=== PATIENT | male | born 1955 | race American Indian/Alaskan Native ===

== ENCOUNTER 2018-09-14 10:56 | Emergency (ER) | payer MEDICARE ==
[2018-09-14 11:44] LABS: Hematocrit 43.9 % (35.5-45.6); Hemoglobin 14.7 gm/dl (11.8-15.2); Mean Corpuscular HGB Conc 33 % (32-34); Mean Corpuscular Volume 94 fl (84-94); Platelet Count 346 K/mm3 (140-440); Red Blood Count 4.67 M/mm3 (3.65-5.03); Red Cell Distribution Width 12.9 % (13.2-15.2)
[2018-09-14 12:08] LABS: Alanine Aminotransferase 12 units/L (7-56); Albumin 4.1 g/dL (3.9-5); BUN/Creatinine Ratio 18; Blood Urea Nitrogen 14 mg/dL (9-20); Calcium 9.3 mg/dL (8.4-10.2); Hemolysis Index 8
[2018-09-14] MEDS ORDERED: NACL 0.9% 1000 ML 1,000 ML ONE (12:35)
[2018-09-14] MEDS ORDERED: NACL 0.9% 1000 ML 1,000 ML IV ONE (13:02)
[2018-09-14] MEDS ORDERED: HumuLIN R IV ONE (13:05)
--- NOTE | 2018-09-14 13:56 | Emergency Department Report ---
ED General Adult HPI - General Chief complaint: Hyperglycemia Stated complaint: HIGH BLOOD SUGAR Source: patient Mode of arrival: Ambulatory Limitations: No Limitations - History of Present Illness Initial comments: Patient is a 63-year-old male is medical history of diabetes who presents with high blood sugar. Patient states that he felt nauseous and that his blood sugar was elevated. His primary care doctor referred him to come to the ER. That his sugar was in the 300s and he came to have lowered. Patient is currently on glipizide nothing makes his symptoms are nothing makes it worse. - Related Data Allergies Allergy/AdvReac Type Severity Reaction Status Date / Time No Known Allergies Allergy Unverified 09/14/18 10:58 ED Review of Systems ROS: Stated complaint: HIGH BLOOD SUGAR Other details as noted in HPI Constitutional: denies: chills, fever Eyes: denies: eye pain, eye discharge, vision change ENT: denies: ear pain, throat pain Respiratory: denies: cough, shortness of breath, wheezing Cardiovascular: denies: chest pain, palpitations Endocrine: no symptoms reported Gastrointestinal: denies: abdominal pain, nausea, diarrhea Genitourinary: denies: urgency, dysuria Musculoskeletal: denies: back pain, joint swelling, arthralgia Skin: denies: rash, lesions Neurological: denies: headache, weakness, paresthesias Psychiatric: denies: anxiety, depression Hematological/Lymphatic: denies: easy bleeding, easy bruising ED Past Medical Hx - Past Medical History Previous Medical History?: Yes Hx Diabetes: Yes - Surgical History Past Surgical History?: No - Social History Smoking Status: Current Every Day Smoker Substance Use Type: Alcohol ED Physical Exam - General Limitations: No Limitations General appearance: alert, in no apparent distress - Head Head exam: Present: atraumatic, normocephalic - Eye Eye exam: Present: normal appearance - ENT ENT exam: Present: mucous membranes moist - Neck Neck exam: Present: normal inspection - Respiratory Respiratory exam: Present: normal lung sounds bilaterally. Absent: respiratory distress - Cardiovascular Cardiovascular Exam: Present: regular rate, normal rhythm. Absent: systolic murmur, diastolic murmur, rubs, gallop - GI/Abdominal GI/Abdominal exam: Present: soft, normal bowel sounds - Rectal Rectal exam: Present: deferred - Extremities Exam Extremities exam: Present: normal inspection - Back Exam Back exam: Present: normal inspection - Neurological Exam Neurological exam: Present: alert, oriented X3 - Psychiatric Psychiatric exam: Present: normal affect, normal mood - Skin Skin exam: Present: warm, dry, intact, normal color. Absent: rash ED Course Vital Signs 09/14/18 09/14/18 09/14/18 11:02 12:06 12:15 Temperature 97.8 F Pulse Rate 71 73 72 Respiratory 16 14 12 Rate Blood Pressure 124/91 136/90 O2 Sat by Pulse 97 99 96 Oximetry 09/14/18 09/14/18 09/14/18 12:30 12:45 13:01 Temperature Pulse Rate 80 72 71 Respiratory 16 12 15 Rate Blood Pressure 136/90 129/86 135/82 O2 Sat by Pulse 97 95 93 Oximetry 09/14/18 09/14/18 09/14/18 13:15 13:31 13:45 Temperature Pulse Rate 71 69 70 Respiratory 11 L 11 L 14 Rate Blood Pressure 141/74 135/82 132/83 O2 Sat by Pulse 98 98 98 Oximetry 09/14/18 09/14/18 09/14/18 14:01 14:15 14:31 Temperature Pulse Rate 71 67 69 Respiratory 11 L 13 17 Rate Blood Pressure 141/93 141/93 138/81 O2 Sat by Pulse 96 99 96 Oximetry 09/14/18 09/14/18 14:45 15:00 Temperature Pulse Rate 78 Respiratory 16 13 Rate Blood Pressure 138/81 141/83 O2 Sat by Pulse 97 97 Oximetry ED Medical Decision Making - Lab Data Result diagrams: 09/14/18 11:25 09/14/18 11:25 Lab Results 09/14/18 09/14/18 09/14/18 Range/Units 11:04 11:25 11:25 WBC 8.3 (4.5-11.0) K/mm3 RBC 4.67 (3.65-5.03) M/mm3 Hgb 14.7 (11.8-15.2) gm/dl Hct 43.9 (35.5-45.6) % MCV 94 (84-94) fl MCH 31 (28-32) pg MCHC 33 (32-34) % RDW 12.9 L (13.2-15.2) % Plt Count 346 (140-440) K/mm3 Sodium 135 L (137-145) mmol/L Potassium 4.3 (3.6-5.0) mmol/L Chloride 96.9 L (98-107) mmol/L Carbon Dioxide 21 L (22-30) mmol/L Anion Gap 21 mmol/L BUN 14 (9-20) mg/dL Creatinine 0.8 (0.8-1.5) mg/dL Estimated GFR > 60 ml/min BUN/Creatinine Ratio 18 % Glucose 397 H (75-100) mg/dL POC Glucose 315 H (70-105) Calcium 9.3 (8.4-10.2) mg/dL Total Bilirubin 0.20 (0.1-1.2) mg/dL AST 11 (5-40) units/L ALT 12 (7-56) units/L Alkaline Phosphatase 55 (35-129) units/L Total Protein 7.1 (6.3-8.2) g/dL Albumin 4.1 (3.9-5) g/dL Albumin/Globulin Ratio 1.4 % 09/14/18 09/14/18 Range/Units 14:03 15:10 WBC (4.5-11.0) K/mm3 RBC (3.65-5.03) M/mm3 Hgb (11.8-15.2) gm/dl Hct (35.5-45.6) % MCV (84-94) fl MCH (28-32) pg MCHC (32-34) % RDW (13.2-15.2) % Plt Count (140-440) K/mm3 Sodium (137-145) mmol/L Potassium (3.6-5.0) mmol/L Chloride (98-107) mmol/L Carbon Dioxide (22-30) mmol/L Anion Gap mmol/L BUN (9-20) mg/dL Creatinine (0.8-1.5) mg/dL Estimated GFR ml/min BUN/Creatinine Ratio % Glucose (75-100) mg/dL POC Glucose 305 H 151 H (70-105) Calcium (8.4-10.2) mg/dL Total Bilirubin (0.1-1.2) mg/dL AST (5-40) units/L ALT (7-56) units/L Alkaline Phosphatase (35-129) units/L Total Protein (6.3-8.2) g/dL Albumin (3.9-5) g/dL Albumin/Globulin Ratio % - Medical Decision Making Chief medical diagnosis: Hyperglycemia differential medical diagnosis DKA, hypokalemia I will get IV fluids IV insulin CBC BMP Critical care attestation.: If time is entered above; I have spent that time in minutes in the direct care of this critically ill patient, excluding procedure time. ED Disposition Clinical Impression: Hyperglycemia Disposition: DC-01 TO HOME OR SELFCARE Is pt being admited?: No Does the pt Need Aspirin: No Condition: Stable Instructions: Diabetic Hyperglycemia (ED) Referrals: [facility] [Other] - 3-5 Days
[2018-09-14 15:10] VITALS: BP 141/83
== END 2018-09-14 15:32 | disposition home or self-care (01) ==
LOC: ED 10:56
DX: E11.65 Type 2 diabetes mellitus with hyperglycemia (principal); F17.200 Nicotine dependence, unspecified, uncomplicated
CPT/HCPCS: 36415; 80053; 82962; 85027; 96361; 96374; 99283; J7030; J1815

== ENCOUNTER 2019-03-13 03:19 | Emergency (ER) | payer MEDICARE, OTHER ==
[2019-03-13] MEDS ORDERED: ACETAMINOPHEN 500 MG TAB PO ONE (04:07)
[2019-03-13] MEDS ORDERED: IBUPROFEN 600 MG TAB PO ONE (04:07)
[2019-03-13] MEDS ORDERED: ONDANSETRON 4 MG ODT TAB PO ONE (04:08)
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
--- NOTE | 2019-03-13 04:35 | XRay Report ---
XR LUMBAR SPINE HISTORY: Lower back pain COMPARISON: None. TECHNIQUE: 3 view(s) of the lumbar spine obtained. FINDINGS: Vertebrae: Normal alignment. No fracture or significant abnormality. Disc Spaces:Moderate disc height loss with anterior osteophytes from L4 through S1. Facet Joints:Moderate facet hypertrophy in the lower lumbar spine. Additional findings: Cholecystectomy clips are noted. IMPRESSION: 1. Moderate degenerative disc and facet disease in the lower lumbar spine. Signer Name: Jessy Vergara MD Signed: 03/13/2019 4:31 AM Workstation Name: [id number]
--- NOTE | 2019-03-13 04:37 | XRay Report ---
XR CERVICAL SPINE HISTORY: Neck pain COMPARISON: None. TECHNIQUE: 4 views of the cervical spine obtained. FINDINGS: Vertebrae: Vertebral body heights and alignment are maintained. Disc Spaces:Mild disc height loss from C5 through C7. Facet Joints:No significant abnormality. Prevertebral Soft Tissues:No significant abnormality. Additional findings: None. IMPRESSION: 1. No acute abnormality identified in the cervical spine. Signer Name: Jessy Vergara MD Signed: 03/13/2019 4:33 AM Workstation Name: [id number]
[2019-03-13 07:32] VITALS: BP 131/84
== END 2019-03-13 05:30 | disposition home or self-care (01) ==
LOC: ED 03:19
DX: M62.838 Other muscle spasm (principal); M62.830 Muscle spasm of back; V89.2XXA Person injured in unspecified motor-vehicle accident, traffic, initial encounter; Y93.89 Activity, other specified; Y92.410 Unspecified street and highway as the place of occurrence of the external cause; Y99.8 Other external cause status
CPT/HCPCS: 72040; 72100; Q0162

== ENCOUNTER 2019-04-18 11:12 | Emergency (ER) | payer SELFPAY ==
[2019-04-18 11:51] VITALS: BP 151/100
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
[2019-04-18] MEDS ORDERED: IPRATROPIUM/ALBUTEROL SULFATE 3 ML AMPUL.NEB IH ONE (13:32)
[2019-04-18] MEDS ORDERED: predniSONE 20 MG TAB PO ONE (13:34)
--- NOTE | 2019-04-18 13:47 | Emergency Department Report ---
HPI - General Chief Complaint: Rectal Pain Time Seen by Provider: 04/18/19 11:49 - HPI HPI: 63-year-old -[place] male presents to the emergency department with 2 complaints. First, the patient complains of a 3 to four-day history of some rectal bleeding only seen on the toilet paper when he wipes. It is bright red blood. He denies any abdominal or rectal pain. Secondly, the patient complains of some wheezing and shortness of breath over the past 2 weeks. He has a history of COPD. He is not oxygen dependent. He is a tobacco smoker. He does not have any albuterol at home and has not taken anything for his symptoms. His primary care physician is Dr. Muñoz but he has not seen them regarding his symptoms. No recent travel or sick contacts at home. ED Past Medical Hx - Past Medical History Previous Medical History?: Yes Hx Diabetes: Yes Hx COPD: Yes - Surgical History Past Surgical History?: Yes Hx Cholecystectomy: Yes - Social History Smoking Status: Current Some Day Smoker Substance Use Type: Alcohol - Medications Home Medications: Home Medications Medication Instructions Recorded Confirmed Last Taken Type Ibuprofen [Motrin] 600 mg PO Q8H PRN #20 tablet 03/13/19 Unknown Rx tiZANidine [Zanaflex 4mg TAB] 4 mg PO Q8H PRN #21 tablet 03/13/19 Unknown Rx traMADol [Ultram] 50 mg PO Q6HR PRN #12 tablet 03/13/19 Unknown Rx ALBUTEROL Inhaler (OR & NICU) 2 puff IH QID PRN #1 inh 04/18/19 Unknown Rx [ProAir HFA Inhaler] predniSONE [Deltasone] 20 mg PO QDAY #5 tab 04/18/19 Unknown Rx ED Review of Systems ROS: Stated complaint: RECTAL BLEEDING Other details as noted in HPI Comment: All other systems reviewed and negative Constitutional: denies: chills, fever Eyes: denies: eye pain, vision change Respiratory: cough, shortness of breath, wheezing Cardiovascular: denies: chest pain, palpitations Gastrointestinal: denies: abdominal pain, vomiting Genitourinary: other (rectal bleeding). denies: dysuria Musculoskeletal: denies: back pain Neurological: denies: headache Physical Exam - Physical Exam Vital Signs: Vital Signs 04/18/19 11:50 Temperature 98.5 F Pulse Rate 86 Respiratory 18 Rate Blood Pressure 151/100 O2 Sat by Pulse 100 Oximetry Physical Exam: GENERAL: The patient is well-developed well-nourished. HENT: Normocephalic. Atraumatic. Patient has moist mucous membranes. EYES: Extraocular motions are intact. NECK: Supple. Trachea is midline. CHEST/LUNGS: Mild wheezing. No tachypnea or accessory muscle use. There is no respiratory distress noted. HEART/CARDIOVASCULAR: Regular. There is no tachycardia. There is no murmur. ABDOMEN: Abdomen is soft, nontender. Patient has normal bowel sounds. There is no abdominal distention. SKIN: Skin is warm and dry. NEURO: The patient is awake, alert, and oriented. The patient is cooperative. The patient has no focal neurologic deficits. Normal speech. MUSCULOSKELETAL: There is no tenderness or deformity. There is no limitation range of motion. There is no evidence of acute injury. ED Course Vital Signs 04/18/19 11:50 Temperature 98.5 F Pulse Rate 86 Respiratory 18 Rate Blood Pressure 151/100 O2 Sat by Pulse 100 Oximetry ED Medical Decision Making - Lab Data Result diagrams: 04/18/19 13:39 04/18/19 13:39 - Medical Decision Making Regarding the patient's rectal bleeding, his hemoglobin is stable/normal at 14. 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 I was unable to do a rectal examination to look for the source of bleeding. However, based on his history and explanation, it sounds like there is some irritation towards the rectum, something like a hemorrhoid, as the patient does not have any rectal hemorrhage. He was given some discharge paperwork that included GI referral. Regarding his COPD, the patient had some mild wheezing but did not appear in any respiratory or acute distress. He was given a dose of steroids and was given a breathing treatment. His vital signs are stable including being afebrile and no hypoxia. The patient did not agree to any chest x-ray or chest imaging. He was given a prescription for some steroids and albuterol inhaler. The patient was instructed to return to the emergency department if he changes his mind about further evaluation, or with any acute distress. - Differential Diagnosis COPD, asthma, hemorrhoids, malignancy Critical Care Time: No Critical care attestation.: If time is entered above; I have spent that time in minutes in the direct care of this critically ill patient, excluding procedure time. ED Disposition Clinical Impression: Rectal bleeding, COPD exacerbation, Tobacco abuse Disposition: TO HOME OR SELFCARE Is pt being admited?: No Condition: Stable Instructions: Rectal Bleeding (ED), Chronic Obstructive Pulmonary Disease (ED) Additional Instructions: Please follow-up with your primary care physician. I have given you a referral for a local underground conduit installer, Dr. Bull, to follow up regarding your rectal bleeding. Please return to the emergency department if you change your mind about further evaluation or with any acute distress. Prescriptions: predniSONE [Deltasone] 20 mg PO QDAY #5 tab ALBUTEROL Inhaler (OR & NICU) [ProAir HFA Inhaler] 2 puff IH QID PRN #1 inh PRN Reason: Shortness Of Breath Referrals: PRIMARY CARE, [Primary Care Provider] - 2-3 Days SOULEYMANE BULL MD [Staff Physician] - 2-3 Days Time of Disposition: 14:18
[2019-04-18 13:54] LABS: Basophils # (Auto) 0.1 K/mm3 (0.0-0.1); Basophils % (Auto) 1.2 % (0.0-1.8); Eosinophils % (Auto) 0.6 % (0.0-4.3); Hematocrit 43.9 % (35.5-45.6); Hemoglobin 14.4 gm/dl (11.8-15.2); Lymphocytes # (Auto) 1.9 K/mm3 (1.2-5.4); Lymphocytes % (Auto) 29.4 % (13.4-35.0); Mean Corpuscular HGB Conc 33 % (32-34); Mean Corpuscular Volume 100 fl (84-94); Monocytes # (Auto) 0.5 K/mm3 (0.0-0.8); Monocytes % (Auto) 8.4 % (0.0-7.3); Platelet Count 281 K/mm3 (140-440); Red Blood Count 4.38 M/mm3 (3.65-5.03); Red Cell Distribution Width 13.4 % (13.2-15.2)
[2019-04-18 14:02] LABS: INR 0.93 (0.87-1.13)
[2019-04-18 14:03] LABS: Partial Thromboplastin Time 23.1 Sec. (24.2-36.6)
[2019-04-18 14:16] LABS: Alanine Aminotransferase 19 units/L (7-56); Albumin 4.5 g/dL (3.9-5); BUN/Creatinine Ratio 13; Blood Urea Nitrogen 9 mg/dL (9-20); Calcium 9.7 mg/dL (8.4-10.2); Hemolysis Index 24
== END 2019-04-18 14:24 | disposition home or self-care (01) ==
LOC: ED 11:12
DX: K62.5 Hemorrhage of anus and rectum (principal); J44.1 Chronic obstructive pulmonary disease with (acute) exacerbation; E11.9 Type 2 diabetes mellitus without complications; F17.200 Nicotine dependence, unspecified, uncomplicated; F10.10 Alcohol abuse, uncomplicated; Z90.49 Acquired absence of other specified parts of digestive tract; Z79.899 Other long term (current) drug therapy
CPT/HCPCS: 36415; 80053; 85025; 85610; 85730; 94640; 99283; J7512; 94644

== ENCOUNTER 2019-08-10 10:28 | Emergency (ER) | payer MEDICARE ==
[2019-08-10] MEDS ORDERED: ALBUTEROL 2.5 MG/3 ML NEBU IH STA (13:25)
--- NOTE | 2019-08-10 15:52 | XRay Report ---
CHEST 2 VIEWS INDICATION / CLINICAL INFORMATION: cough. COMPARISON: None available. FINDINGS: SUPPORT DEVICES: None. HEART / MEDIASTINUM: No significant abnormality. LUNGS / PLEURA: No significant pulmonary or pleural abnormality. No pneumothorax. ADDITIONAL FINDINGS: No significant additional findings. IMPRESSION: 1. No acute findings. Signer Name: Saqib Hernandez MD Signed: 08/10/2019 3:47 PM Workstation Name: [id number]
--- NOTE | 2019-08-10 17:22 | Emergency Department Report ---
- General Chief Complaint: Upper Respiratory Infection Stated Complaint: BLOOD SUGAR,COPD,DIABETIC Time Seen by Provider: 08/10/19 13:23 Source: patient Mode of arrival: Ambulatory Limitations: No Limitations - History of Present Illness Initial Comments: 64-year-old male diabetic smoker with past medical history of COPD presents emerged department complaining of 1 month history of cough congestion coryza with mucous production and occasional wheezing. He reports having no hemoptysis no hematemesis no hematochezia. Ports a fever since sensation but no chest pain or palpitations no previous presyncope. He reports no foreign travel. No sick contacts. MD Complaint: cough, rhinorrhea, nasal congestion - Related Data Previous Rx's Medication Instructions Recorded Last Taken Type Ibuprofen [Motrin] 600 mg PO Q8H PRN #20 tablet 03/13/19 Unknown Rx tiZANidine [Zanaflex 4mg TAB] 4 mg PO Q8H PRN #21 tablet 03/13/19 Unknown Rx traMADoL [Ultram] 50 mg PO Q6HR PRN #12 tablet 03/13/19 Unknown Rx Albuterol INH(or & Nicu Only) 2 puff IH QID PRN #1 inh 04/18/19 Unknown Rx [ProAir HFA Inhaler] predniSONE [Deltasone] 20 mg PO QDAY #5 tab 04/18/19 Unknown Rx Albuterol INH(or & Nicu Only) 1 puff IH Q4-6H PRN #1 inha 08/10/19 Unknown Rx [ProAir HFA Inhaler] Azithromycin [Zithromax] 500 mg PO QDAY #3 tablet 08/10/19 Unknown Rx predniSONE [Deltasone] 50 mg PO QDAY #5 tab 08/10/19 Unknown Rx Allergies Allergy/AdvReac Type Severity Reaction Status Date / Time No Known Allergies Allergy Verified 03/13/19 03:21 ED Review of Systems ROS: Stated complaint: BLOOD SUGAR,COPD,DIABETIC Other details as noted in HPI Comment: All other systems reviewed and negative ED Past Medical Hx - Past Medical History Previous Medical History?: Yes Hx Diabetes: Yes Hx COPD: Yes - Surgical History Past Surgical History?: Yes Hx Cholecystectomy: Yes - Social History Smoking Status: Current Every Day Smoker - Medications Home Medications: Home Medications Medication Instructions Recorded Confirmed Last Taken Type Ibuprofen [Motrin] 600 mg PO Q8H PRN #20 tablet 03/13/19 Unknown Rx tiZANidine [Zanaflex 4mg TAB] 4 mg PO Q8H PRN #21 tablet 03/13/19 Unknown Rx traMADoL [Ultram] 50 mg PO Q6HR PRN #12 tablet 03/13/19 Unknown Rx Albuterol INH(or & Nicu Only) 2 puff IH QID PRN #1 inh 04/18/19 Unknown Rx [ProAir HFA Inhaler] predniSONE [Deltasone] 20 mg PO QDAY #5 tab 04/18/19 Unknown Rx Albuterol INH(or & Nicu Only) 1 puff IH Q4-6H PRN #1 inha 08/10/19 Unknown Rx [ProAir HFA Inhaler] Azithromycin [Zithromax] 500 mg PO QDAY #3 tablet 08/10/19 Unknown Rx predniSONE [Deltasone] 50 mg PO QDAY #5 tab 08/10/19 Unknown Rx ED Physical Exam - General Limitations: No Limitations General appearance: alert, in no apparent distress - Head Head exam: Present: atraumatic, normocephalic - Eye Eye exam: Present: normal appearance, PERRL, EOMI Pupils: Present: normal accommodation - ENT ENT exam: Present: mucous membranes moist, other (Nasal congestion bilaterally) - Neck Neck exam: Present: normal inspection - Respiratory Respiratory exam: Present: normal lung sounds bilaterally, wheezes, rhonchi. Absent: respiratory distress - Cardiovascular Cardiovascular Exam: Present: regular rate, normal rhythm. Absent: systolic murmur, diastolic murmur, rubs, gallop - GI/Abdominal GI/Abdominal exam: Present: soft, normal bowel sounds - Rectal Rectal exam: Present: deferred - Extremities Exam Extremities exam: Present: normal inspection - Back Exam Back exam: Present: normal inspection - Neurological Exam Neurological exam: Present: alert, oriented X3 - Psychiatric Psychiatric exam: Present: normal affect, normal mood - Skin Skin exam: Present: warm, dry, intact, normal color. Absent: rash ED Course Vital Signs 08/10/19 10:39 Temperature 98.8 F Pulse Rate 94 H Respiratory 18 Rate Blood Pressure 142/119 O2 Sat by Pulse 97 Oximetry ED Medical Decision Making - Radiology Data Radiology results: report reviewed [facility] [address] [place] [address] XRay Report Signed Patient: TRACIE JOHNS MR#: [id number] : 1955 Acct:[id number] Age/Sex: 64 / M ADM Date: 08/10/19 Loc: ED Attending Dr: Ordering Physician: ENRIQUE ONTIVEROS Date of Service: 08/10/19 Procedure(s): XR chest routine 2V Accession Number(s): [id number] cc: ENRIQUE ONTIVEROS Fluoro Time In Minutes: CHEST 2 VIEWS INDICATION / CLINICAL INFORMATION: cough. COMPARISON: None available. FINDINGS: SUPPORT DEVICES: None. HEART / MEDIASTINUM: No significant abnormality. LUNGS / PLEURA: No significant pulmonary or pleural abnormality. No pneumothorax. ADDITIONAL FINDINGS: No significant additional findings. IMPRESSION: 1. No acute findings. Signer Name: Saqib Hernandez MD Signed: 08/10/2019 3:47 PM Workstation Name: [id number] Transcribed By: MAURICIO Dictated By: Saqib Hernandez MD Electronically Authenticated By: Saqib Hernandez MD Signed Date/Time: 08/10/191546 DD/ 45 TD/TT: - Medical Decision Making This patient presents with acute cough, most consistent with bronchitis. Differential diagnosis includes pneumonia. Presentation not consistent with acute bacterial pneumonia, influenza, asthma, transient airway hyperresponsiveness. Presentation not consistent with chronic causes of cough (including GERD, asthma, postnasal discharge, medication side effect, CHF, lung cancer or mass). Plan: Normal CXR, supportive care, reassess, continue smoking cessation attempts Critical care attestation.: If time is entered above; I have spent that time in minutes in the direct care of this critically ill patient, excluding procedure time. ED Disposition Clinical Impression: Bronchitis, Dyspnea Disposition: DC-01 TO HOME OR SELFCARE Is pt being admited?: No Does the pt Need Aspirin: No Condition: Stable Instructions: Chronic Bronchitis (ED) Prescriptions: predniSONE [Deltasone] 50 mg PO QDAY #5 tab Albuterol INH(or & Nicu Only) [ProAir HFA Inhaler] 1 puff IH Q4-6H PRN #1 inha PRN Reason: Cough Azithromycin [Zithromax] 500 mg PO QDAY #3 tablet Referrals: PRIMARY CAREMD [Primary Care Provider] - 3-5 Days MARIA ISABEL DOOLEY MD [Staff Physician] - 3-5 Days
[2019-08-10 17:26] VITALS: BP 136/87
== END 2019-08-10 17:40 | disposition home or self-care (01) ==
LOC: ED 10:28
DX: J40 Bronchitis, not specified as acute or chronic (principal); R06.00 Dyspnea, unspecified; E11.9 Type 2 diabetes mellitus without complications; J44.9 Chronic obstructive pulmonary disease, unspecified; F17.200 Nicotine dependence, unspecified, uncomplicated; Z90.49 Acquired absence of other specified parts of digestive tract; Z79.1 Long term (current) use of non-steroidal anti-inflammatories (NSAID); Z79.899 Other long term (current) drug therapy
CPT/HCPCS: 71046; 99283

== ENCOUNTER 2020-04-15 16:08 | Emergency (ER) | payer MEDICARE ==
[2020-04-15] MEDS ORDERED: BENZONATATE 100 MG CAP PO ONE (16:56)
[2020-04-15] MEDS ORDERED: SODIUM CHLORIDE 0.9% 1000 ML 1,000 ML IV ONE (16:56)
[2020-04-15] MEDS ORDERED: ACETAMINOPHEN 500 MG TAB PO ONE (16:57)
--- NOTE | 2020-04-15 16:57 | Emergency Department Report ---
HPI - General Chief Complaint: Dyspnea/Respdistress Time Seen by Provider: 04/15/20 16:25 - HPI HPI: 64-year-old -[place] male presents to the emergency department from home with complaint of a 1 day history of body aches, fever, chills, sore throat, shortness of breath, mixed dry and productive cough. Patient is a tobacco smoker but says he is trying to quit. He has a history of COPD but is not oxygen dependent. Patient also has a history of insulin-dependent diabetes, as well as HIV with his last CD4 count of about 900. He has not taken anything for his symptoms prior to presentation. No known aggravating or alleviating factors. No recent travel or sick contacts at home. No known exposure to anyone with COVID-19. He scores his body aches at a 3 out of 10 in intensity. ED Past Medical Hx - Past Medical History Previous Medical History?: Yes Hx Diabetes: Yes Hx COPD: Yes - Surgical History Past Surgical History?: Yes Hx Cholecystectomy: Yes - Social History Smoking Status: Former Smoker Substance Use Type: Alcohol, Prescribed - Medications Home Medications: Home Medications Medication Instructions Recorded Confirmed Last Taken Type Ibuprofen [Motrin] 600 mg PO Q8H PRN #20 tablet 03/13/19 Unknown Rx tiZANidine [Zanaflex 4mg TAB] 4 mg PO Q8H PRN #21 tablet 03/13/19 Unknown Rx traMADoL [Ultram] 50 mg PO Q6HR PRN #12 tablet 03/13/19 Unknown Rx Albuterol Mdi (or & Nicu Only) 1 puff IH Q4-6H PRN #1 inha 08/10/19 Unknown Rx [ProAir HFA Inhaler] Azithromycin [Zithromax] 500 mg PO QDAY #3 tablet 08/10/19 Unknown Rx Promethazine/Dextromethorphan 5 ml PO Q6HR PRN #180 syrup 08/10/19 Unknown Rx [Promethazine-Dm Syrup] predniSONE [Deltasone] 50 mg PO QDAY #5 tab 08/10/19 Unknown Rx Albuterol Mdi (or & Nicu Only) 2 puff IH QID PRN #1 inh 04/15/20 Unknown Rx [ProAir HFA Inhaler] Benzonatate [Tessalon Perles] 100 mg PO Q8HR PRN #20 capsule 04/15/20 Unknown Rx predniSONE [Deltasone] 20 mg PO QDAY #4 tab 04/15/20 Unknown Rx ED Review of Systems ROS: Stated complaint: BODY ACHE Other details as noted in HPI Comment: All other systems reviewed and negative Constitutional: chills, fever Eyes: denies: eye pain, vision change ENT: throat pain. denies: ear pain Respiratory: cough, shortness of breath Cardiovascular: denies: chest pain, palpitations Gastrointestinal: denies: nausea, vomiting Genitourinary: denies: dysuria, discharge Musculoskeletal: myalgia. denies: joint swelling Skin: denies: rash, lesions Neurological: denies: weakness, numbness Physical Exam - Physical Exam Vital Signs: Vital Signs 04/15/20 16:14 Temperature 102.6 F H Pulse Rate 113 H Respiratory 22 Rate Blood Pressure 136/88 O2 Sat by Pulse 95 Oximetry Physical Exam: GENERAL: The patient is well-developed well-nourished. HENT: Normocephalic. Atraumatic. Patient has moist mucous membranes. Oropharynx is clear without tonsillar perjury, erythema or exudates. EYES: Extraocular motions are intact. NECK: Supple. Trachea is midline. CHEST/LUNGS: Mild wheezing throughout the chest. No tachypnea or accessory muscle use. Dry cough heard during examination. HEART/CARDIOVASCULAR: Regular. There is mild tachycardia. There is no murmur. ABDOMEN: Abdomen is soft, nontender. Patient has normal bowel sounds. SKIN: Skin is warm and dry. NEURO: The patient is awake, alert, and oriented. The patient is cooperative. The patient has no focal neurologic deficits. Normal speech. MUSCULOSKELETAL: There is no tenderness or deformity. There is no limitation range of motion. ED Course Vital Signs 04/15/20 16:14 Temperature 102.6 F H Pulse Rate 113 H Respiratory 22 Rate Blood Pressure 136/88 O2 Sat by Pulse 95 Oximetry - Reevaluation(s) Reevaluation #1: 04/15/20 23:12 Lab Results 04/15/20 04/15/20 04/15/20 Range/Units 16:55 16:55 16:55 WBC 8.1 (4.5-11.0) K/mm3 RBC 3.84 (3.65-5.03) M/mm3 Hgb 12.6 (11.8-15.2) gm/dl Hct 37.7 (35.5-45.6) % MCV 98 H (84-94) fl MCH 33 H (28-32) pg MCHC 34 (32-34) % RDW 12.9 L (13.2-15.2) % Plt Count 209 (140-440) K/mm3 Lymph % (Auto) 14.3 (13.4-35.0) % [place] % (Auto) 12.3 H (0.0-7.3) % Eos % (Auto) 0.6 (0.0-4.3) % Baso % (Auto) 0.6 (0.0-1.8) % Lymph # (Auto) 1.2 (1.2-5.4) K/mm3 [place] # (Auto) 1.0 H (0.0-0.8) K/mm3 Eos # (Auto) 0.0 (0.0-0.4) K/mm3 Baso # (Auto) 0.0 (0.0-0.1) K/mm3 Seg Neutrophils % 72.2 H (40.0-70.0) % Seg Neutrophils # 5.9 (1.8-7.7) K/mm3 PT 13.4 (12.2-14.9) Sec. INR 1.00 (0.87-1.13) Sodium 131 L (137-145) mmol/L Potassium 3.3 L (3.6-5.0) mmol/L Chloride 97.0 L (98-107) mmol/L Carbon Dioxide 22 (22-30) mmol/L Anion Gap 15 mmol/L BUN 9 (9-20) mg/dL Creatinine 0.7 L (0.8-1.3) mg/dL Estimated GFR > 60 ml/min BUN/Creatinine Ratio 13 % Glucose 223 H (75-100) mg/dL Calcium 8.6 (8.4-10.2) mg/dL Total Bilirubin 0.40 (0.1-1.2) mg/dL AST 26 (5-40) units/L ALT 27 (7-56) units/L Alkaline Phosphatase 53 (35-129) units/L Total Protein 6.1 L (6.3-8.2) g/dL Albumin 3.7 L (3.9-5) g/dL Albumin/Globulin Ratio 1.5 % Influenza A (Rapid) (Negative) Influenza B (Rapid) (Negative) Group A Strep Rapid (Negative) 04/15/20 04/15/20 Range/Units Unknown Unknown WBC (4.5-11.0) K/mm3 RBC (3.65-5.03) M/mm3 Hgb (11.8-15.2) gm/dl Hct (35.5-45.6) % MCV (84-94) fl MCH (28-32) pg MCHC (32-34) % RDW (13.2-15.2) % Plt Count (140-440) K/mm3 Lymph % (Auto) (13.4-35.0) % [place] % (Auto) (0.0-7.3) % Eos % (Auto) (0.0-4.3) % Baso % (Auto) (0.0-1.8) % Lymph # (Auto) (1.2-5.4) K/mm3 [place] # (Auto) (0.0-0.8) K/mm3 Eos # (Auto) (0.0-0.4) K/mm3 Baso # (Auto) (0.0-0.1) K/mm3 Seg Neutrophils % (40.0-70.0) % Seg Neutrophils # (1.8-7.7) K/mm3 PT (12.2-14.9) Sec. INR (0.87-1.13) Sodium (137-145) mmol/L Potassium (3.6-5.0) mmol/L Chloride (98-107) mmol/L Carbon Dioxide (22-30) mmol/L Anion Gap mmol/L BUN (9-20) mg/dL Creatinine (0.8-1.3) mg/dL Estimated GFR ml/min BUN/Creatinine Ratio % Glucose (75-100) mg/dL Calcium (8.4-10.2) mg/dL Total Bilirubin (0.1-1.2) mg/dL AST (5-40) units/L ALT (7-56) units/L Alkaline Phosphatase (35-129) units/L Total Protein (6.3-8.2) g/dL Albumin (3.9-5) g/dL Albumin/Globulin Ratio % Influenza A (Rapid) Negative (Negative) Influenza B (Rapid) Negative (Negative) Group A Strep Rapid Negative (Negative) Reevaluation #2: 04/15/20 23:12 Vital Signs 04/15/20 04/15/20 04/15/20 16:14 17:00 18:30 Temperature 102.6 F H Pulse Rate 113 H 104 H 100 H Pulse Rate [ Bilateral Throughout] Respiratory 22 21 14 Rate Respiratory Rate [Bilateral Throughout] Blood Pressure 136/88 Blood Pressure 134/50 [Left] O2 Sat by Pulse 95 99 98 Oximetry 04/15/20 04/15/20 04/15/20 19:43 20:00 20:57 Temperature Pulse Rate 85 Pulse Rate [ 88 Bilateral Throughout] Respiratory 18 22 Rate Respiratory 20 Rate [Bilateral Throughout] Blood Pressure 125/70 Blood Pressure [Left] O2 Sat by Pulse 99 99 Oximetry 04/15/20 04/15/20 21:00 21:30 Temperature Pulse Rate 81 86 Pulse Rate [ Bilateral Throughout] Respiratory 22 22 Rate Respiratory Rate [Bilateral Throughout] Blood Pressure 125/70 151/85 Blood Pressure [Left] O2 Sat by Pulse 99 96 Oximetry ED Medical Decision Making - Lab Data Result diagrams: 04/15/20 16:55 04/15/20 16:55 - Radiology Data Radiology results: image reviewed interpreted by me: Chest x-ray does not show any acute process. There are no pleural effusions, obvious pneumonia and there is no pneumothorax. No significant cardiomegaly. - Medical Decision Making This patient presents to the emergency department with complaint of fever, body aches, cough, shortness of breath. Chest x-ray does not show any pneumonia, pleural effusions, pneumothorax, focal consolidation, or any other acute process. Patient's labs have been mostly unremarkable except for some slight hyperglycemia with a blood sugar of 220, and mild hypokalemia with a potassium of 3.3. Patient had a negative rapid strep test and was negative for influenza a and B. The patient was given some IV fluid resuscitation, potassium supplementation, a breathing treatment, a dose of steroids, Tylenol and Toradol for fever and body aches. Patient was reevaluated multiple times over multiple hours and is feeling some improvement. His fever has come down and the tachycardia has resolved. The patient was able to ambulate around the emergency department for more than 2 minutes without any hypoxia or increased work of breathing. Altogether the patient appears most consistent with a viral upper respiratory infection. Given the current pandemic, it is possible that the patient could have COVID-19. We do not have [id number] testing here and only test those that are admitted, and only once a day. This patient does not appear to have any emergent medical condition or require admission at this time. We discussed precautions to take including isolation/quarantine and staying away from those that are elderly, immunocompromised or chronically ill/debilitated. He has been instructed to seek outpatient COVID-19 testing. He has been given prescriptions for an albuterol inhaler, antitussive medication, a course of steroids and he will use anti-inflammatories/Tylenol for his body aches and fever. Patient will return to the emergency department with any worsening of his symptoms or with any acute distress. The patient was placed in patient isolation and droplet precautions immediately upon arrival to the main emergency department. I wore full PPE gear including a surgical hat, goggles, N95 mask, surgical mask, gown, and double gloves for every encounter. Critical Care Time: No Critical care attestation.: If time is entered above; I have spent that time in minutes in the direct care of this critically ill patient, excluding procedure time. ED Disposition Clinical Impression: Viral upper respiratory infection, Bronchospasm Hypertension Qualifiers: Hypertension type: essential hypertension Qualified Code(s): I10 - Essential (primary) hypertension Fever Qualifiers: Fever type: unspecified Qualified Code(s): R50.9 - Fever, unspecified Disposition: DC-01 TO HOME OR SELFCARE Is pt being admited?: No Condition: Stable Instructions: Fever, Adult, COVID-19, Upper Respiratory Infection, Adult, Hypertension (ED) Additional Instructions: Please follow-up with your primary care physician in the next few days. Your symptoms and examination appear most consistent with a viral upper respiratory infection. Given the current pandemic, there is the possibility that this could be COVID-19. I am unable to test you for COVID-19 in the emergency department at this time as we do not have [id number] testing. Please isolate/quarantine and avoid anybody who is elderly, immunocompromised, or chronically ill/debilitated. I recommend that you seek outpatient COVID-19 testing. This can be done at some primary care physicians offices, some urgent cares, and there should be a listing of testing facilities through the [facility]. Return to the emergency department with any worsening of your symptoms, new or concerning symptoms not addressed during this current emergency department visit, or with any acute distress. Prescriptions: predniSONE [Deltasone] 20 mg PO QDAY #4 tab Albuterol Mdi (or & Nicu Only) [ProAir HFA Inhaler] 2 puff IH QID PRN #1 inh PRN Reason: Shortness Of Breath Benzonatate [Tessalon Perles] 100 mg PO Q8HR PRN #20 capsule PRN Reason: Cough Referrals: STEVE FELDER JR, MD [Primary Care Provider] - 2-3 Days Forms: Work/School Release Form(ED) Time of Disposition: 21:54
--- NOTE | 2020-04-15 17:02 | XRay Report ---
CHEST 1 VIEW INDICATION / CLINICAL INFORMATION: SOB. COMPARISON: Chest radiograph 08/10/2019 FINDINGS: SUPPORT DEVICES: None. HEART / MEDIASTINUM: No significant abnormality. LUNGS / PLEURA: No significant pulmonary or pleural abnormality. No pneumothorax. ADDITIONAL FINDINGS: No significant additional findings. IMPRESSION: 1. No acute findings. Signer Name: Jessy Vergara MD Signed: 04/15/2020 4:58 PM Workstation Name: [id number]
[2020-04-15 17:27] LABS: Alanine Aminotransferase 27 units/L (7-56); Albumin 3.7 g/dL (3.9-5); BUN/Creatinine Ratio 13; Basophils % (Auto) 0.6 % (0.0-1.8); Blood Urea Nitrogen 9 mg/dL (9-20); Calcium 8.6 mg/dL (8.4-10.2); Eosinophils % (Auto) 0.6 % (0.0-4.3); Hematocrit 37.7 % (35.5-45.6); Hemoglobin 12.6 gm/dl (11.8-15.2); Hemolysis Index 23; Lymphocytes # (Auto) 1.2 K/mm3 (1.2-5.4); Lymphocytes % (Auto) 14.3 % (13.4-35.0); Mean Corpuscular HGB Conc 34 % (32-34); Mean Corpuscular Volume 98 fl (84-94); Monocytes % (Auto) 12.3 % (0.0-7.3); Platelet Count 209 K/mm3 (140-440); Red Blood Count 3.84 M/mm3 (3.65-5.03); Red Cell Distribution Width 12.9 % (13.2-15.2)
[2020-04-15] MEDS ORDERED: KETOROLAC 30 MG/1 ML INJ IV ONE (17:49)
[2020-04-15] MEDS ORDERED: POTASSIUM CHLORIDE ER 10 MEQ TAB PO ONE (18:00)
[2020-04-15] MEDS ORDERED: ALBUTEROL 8.5 GM MDI INHALATION IH ONE (19:05)
[2020-04-15] MEDS ORDERED: ALBUTEROL 2.5 MG/3 ML NEBU IH ONE (19:22)
[2020-04-15 21:31] VITALS: BP 151/85
== END 2020-04-15 22:30 | disposition home or self-care (01) ==
LOC: ED 16:08
DX: J06.9 Acute upper respiratory infection, unspecified (principal); B34.9 Viral infection, unspecified; J98.01 Acute bronchospasm; I10 Essential (primary) hypertension; R50.9 Fever, unspecified; E11.9 Type 2 diabetes mellitus without complications; J44.9 Chronic obstructive pulmonary disease, unspecified; Z90.49 Acquired absence of other specified parts of digestive tract; Z87.891 Personal history of nicotine dependence; Z79.1 Long term (current) use of non-steroidal anti-inflammatories (NSAID); Z79.2 Long term (current) use of antibiotics; Z79.899 Other long term (current) drug therapy
CPT/HCPCS: 36415; 71045; 80053; 85025; 85610; 87116; 87400; 87430; 94640; 96361; 96374; 99285; J1885; J7030; 94644